=== PATIENT | male | born 1965 | race Two or more races ===

== ENCOUNTER 2017-05-08 20:03 | Emergency (ER) | payer OTHER ==
[~2017-05-08] VITALS: Ht 180.3 cm; Wt 101.2 kg
[2017-05-08 21:18] LABS: Basophils # (auto) 0 uL; Basophils % (auto) 0.3 % (0.0-2.0); CONDITION Y; Eosinophils # (auto) 0.1 uL; Eosinophils % (auto) 1.2 % (0.0-7.0); Hematocrit 45.5 % (41.0-53.0); Hemoglobin 15.6 g/dL (13.5-17.5); Lymphocytes % (auto) 17.4 % (10.0-50.0); Mean Corpuscular Hemoglobin 30.6 pg (28.0-32.0); Mean Corpuscular Hgb Conc. 34.4 g/dL (32.0-36.0); Mean Corpuscular Volume 89.1 fL (80.0-100.0); Monocytes # (auto) 0.9 uL; Monocytes % (auto) 7.9 % (0.0-12.0); Neutrophils # (auto) 8.3 uL; Neutrophils % (auto) 73.2 % (37.0-80.0); Platelet Count (auto) 237 10^3/uL (140-450); Red Cell Distribution Width 13.3 % (11.6-16.0); White Blood Cell 11.3 10^3/uL (4.4-10.8)
[2017-05-08 21:25] LABS: Albumin 3.7 g/dL (3.4-5.0); BUN/Creatinine Ratio 26.2; Potassium 3.7 mmol/L (3.5-5.1)
[2017-05-08 21:26] LABS: Salicylate < 1.7 mg/dL (2.8-20.0)
[2017-05-08 21:28] LABS: Bilirubin, Total 0.4 mg/dL (0.2-1.0); Total Protein 7.7 g/dL (6.4-8.2)
[2017-05-08 21:32] LABS: Acetaminophen < 2.0 ug/mL (10-30)
[2017-05-08] MEDS ORDERED: PATIENTS OWN MEDICATION (Docusate Sodium 250 MG) PO PRN (22:15)
[2017-05-08] MEDS ORDERED: BACLOFEN 10 MG TAB PO PRN (22:15)
[2017-05-08] MEDS ORDERED: TRAZ150T79 PO (22:17)
[2017-05-08] MEDS ORDERED: HYDR-3682 PO (22:17)
[2017-05-08] MEDS ORDERED: DOCU100T15 PO (22:17)
[2017-05-08] MEDS ORDERED: METF-370 PO (22:17)
[2017-05-08] MEDS ORDERED: MELO-85 PO (22:17)
[2017-05-08] MEDS ORDERED: [UNRECOGNIZED DRUG - CODE] EX (22:17)
[2017-05-08] MEDS ORDERED: CYCL1TAB18 PO (22:17)
[2017-05-08] MEDS ORDERED: SERT-274 PO (22:17)
[2017-05-08] MEDS ORDERED: BACL10TA PO (22:17)
[2017-05-08 22:20] LABS: Urine Bilirubin Negative (Negative); Urine Blood TRACE /uL (Negative); Urine Color Yellow (Yellow); Urine Glucose 2+ mg/dL (Normal); Urine Ketone TRACE (Negative); Urine Mucus FEW (None Seen); Urine Nitrite Negative (Negative); Urine RBC 2 /hpf (0 - 3); Urine Urobilinogen Normal (Negative); Urine pH 5.5 (5.0-8.0)
[2017-05-08] MEDS ORDERED: LEVEMIR SC (22:36)
[2017-05-09] MEDS ORDERED: ONDANSETRON ODT 4 MG TAB PO ONE (01:30)
[2017-05-09] MEDS ORDERED: DEXTROSE (50%) 50ML SYRG IV PRN (02:45)
[2017-05-09] MEDS ORDERED: DOCUSATE SODIUM PO PRN (05:30)
[2017-05-09] MEDS ORDERED: INSULIN DETEMIR(LEVEMIR) 1unit/0.01ml Soln (100units/ml) SC SCH (07:00)
[2017-05-09] MEDS ORDERED: metFORMIN HYDROCHLORIDE 500 MG TAB PO SCH (07:00)
[2017-05-09] MEDS: ACCU-CHEK COMFORT CURVE STRIP VI SCH ×2 (08:21→13:03)
[2017-05-09] MEDS: InsuLIN REG 1unit/0.01ml Soln (100units/ml) SC SCH ×2 (09:04→13:18)
[2017-05-09] MEDS ORDERED: MELOXICAM PO SCH (10:00)
[2017-05-09] MEDS ORDERED: MENTHOL METHYL SALICYLATE EX SCH (10:00)
[2017-05-09] MEDS ORDERED: SERTRALINE HCL 50 MG TAB PO SCH (10:00)
[2017-05-09] MEDS ORDERED: IBUPROFEN 800 MG TAB PO ONE (13:00)
[2017-05-09 16:37] VITALS: BP 138/71
[2017-05-09] MEDS ORDERED: PATIENTS OWN MEDICATION (Trazodone Hcl 1 TAB) PO SCH (18:00)
[2017-05-09] MEDS ORDERED: traZODone HCL 50 MG TAB PO SCH (18:00)
[2017-05-09] MEDS ORDERED: InsuLIN REG 1unit/0.01ml Soln (100units/ml) SC SCH (22:00)
== END 2017-05-09 17:00 | disposition short-term general hospital (02) ==
LOC: EDBD 20:03 → ER 20:28
DX: F32.9 Major depressive disorder, single episode, unspecified (principal); F41.9 Anxiety disorder, unspecified; E11.9 Type 2 diabetes mellitus without complications; R45.851 Suicidal ideations
CPT/HCPCS: 36415; 80053; 80307; 80329; 81001; 82962; 85025; 93005; 96372; 99285; J1815; Q0162

== ENCOUNTER 2017-06-15 04:20 | Emergency (ER) | payer OTHER ==
[~2017-06-15] VITALS: Ht 180.3 cm; Wt 102.1 kg
[~2017-06-15 04:20] MED LIST: BACL10TA PO; CYCL1TAB18 PO; DOCU100T15 PO; HYDR-3682 PO; LEVEMIR SC; MELO-85 PO; METF-370 PO; SERT-274 PO; TRAZ150T79 PO; [UNRECOGNIZED DRUG - CODE] EX
[2017-06-15 05:13] VITALS: BP 161/86
[2017-06-15] MEDS ORDERED: MORPHINE SULF INJ 2 MG/ML SYRINGE 1ML IV ONE (05:15)
[2017-06-15] MEDS ORDERED: MORPHINE SULF INJ 2 MG/ML SYRINGE 1ML IM ONE (05:30)
== END 2017-06-15 05:27 | disposition home or self-care (01) ==
LOC: ER 04:29
DX: M54.16 Radiculopathy, lumbar region (principal); G89.29 Other chronic pain; Z79.899 Other long term (current) drug therapy; Z88.6 Allergy status to analgesic agent; Z88.8 Allergy status to other drugs, medicaments and biological substances
CPT/HCPCS: 82962; 96372; 99283; J2270